=== PATIENT | female | born 1980 | race Caucasian/White ===

== ENCOUNTER → 2022-03-28 | Outpatient (CLI) | payer OTHER ==
[2022-03-28 15:12] LABS: HEMOGLOBIN 12.7 gm/dl (12.3-15.3); RED BLOOD COUNT 4.23 M/UL (4.00-5.10); WHITE BLOOD COUNT 6.6 K/UL (4.5-11.0)
[2022-03-28 15:37] LABS: BUN/CREATININE RATIO 18 (0-10)
== END ==
LOC: LAB 14:29
PROVIDERS: Nurse Practitioner
DX: Z13.9 Encounter for screening, unspecified (principal); R11.2 Nausea with vomiting, unspecified
CPT/HCPCS: 36415; 80053; 80061; 83036; 83540; 83550; 83690; 84439; 84443; 85025

== ENCOUNTER → 2022-06-13 | Outpatient (CLI) | payer OTHER | LOC: KOH-I 15:32 | DX: M54.2 Cervicalgia (principal) | CPT/HCPCS: 72040 ==